=== PATIENT | male | born 1965 | race Caucasian/White ===

== ENCOUNTER 2017-08-23 22:23 | Emergency (ER) | payer OTHER ==
[~2017-08-23] VITALS: Ht 177.8 cm; Wt 99.8 kg
--- NOTE | 2017-08-23 22:38 | NUR ---
BB RA C/C "LEFT ANKLE PAIN S/P [employer]". PAIN 10/29. -N/V/D. PT AAOX4. SKIN WNL. PT UNABLE TO MOVE LEFT FOOT SIDE TO SIDE. STRONG AND EQUAL BILATERAL PEDAL PULSES. + BILATERAL SENSATIONS. NO BLEEDING OR HEMATOMA NOTED. PT ABLE TO MOVE TOES ON LEFT FOOT. VSS. PT PLACED ON MONITOR AND POX. PT SAFETY AND COMFORT MEASURES IN PLACE. AWAITING MD FOR EVAL.
[2017-08-23] MEDS ORDERED: HYDROMORPHONE INJ 2 MG/ML DISP.SYRIN ONE (22:42)
--- NOTE | 2017-08-23 22:43 | NUR ---
ADDICTION [employer] WORKER BEDSIDE
[2017-08-23] MEDS ORDERED: ONDANSETRON HCL/PF 4 MG/2 ML VIAL ONE (22:44)
--- NOTE | 2017-08-23 22:58 | NUR ---
MD BEDSIDE WITH PT
[2017-08-23] MEDS ORDERED: ONDANSETRON HCL/PF 4 MG/2 ML VIAL IV ONE (23:00)
[2017-08-23] MEDS ORDERED: HYDROMORPHONE 1 MG/1 ML DISP.SYRIN IV ONE (23:00)
[2017-08-23] MEDS ORDERED: PROPOFOL 20 ML IV ONE (23:33)
--- NOTE | 2017-08-23 23:58 | NUR ---
2351: MD WIN, ACCOUNT CLASSIFICATION CLERK DONALD, RT SINCERE, RN FLAVIA, RN JOSEPH, EMT ML BEDSIDE FOR MODERATE SEDATION. CONSENT PAPERS SIGNED BY PT. PT AWARE OF PROCEDURE. VERBAL ORDER FROM MD TO PUSH 100MG OF PROP. VSS PRE,INTRA, AND POST PROCEDURE. PT AAOX4 AT 2357 WITH EVEN AND UNLABORED BREATHS. WILL CONTINUE TO MONITOR PT.
[2017-08-24] MEDS ORDERED: PROPOFOL 200 MG/20 ML VIAL IV ONE (00:30)
--- NOTE | 2017-08-24 01:06 | NUR ---
Patient is resting comfortably in bed with eyes closed. Easily aroused. VSS
[2017-08-24 01:40] VITALS: BP 134/85
--- NOTE | 2017-08-24 01:40 | NUR ---
Patient discharged to home in stable condition. Written and verbal after care instructions given. Patient verbalizes understanding of instruction.IV removed. Catheter intact and site benign. Pressure and 4x4 applied to site. No bleeding noted. VSS UPON DISCHARGE
== END 2017-08-24 01:42 | disposition home or self-care (01) ==
LOC: ER 22:24
DX: S82.832A Other fracture of upper and lower end of left fibula, initial encounter for closed fracture (principal); S83.125A Posterior dislocation of proximal end of tibia, left knee, initial encounter; W01.0XXA Fall on same level from slipping, tripping and stumbling without subsequent striking against object, initial encounter; Y93.66 Activity, soccer; Y92.89 Other specified places as the place of occurrence of the external cause; Y99.8 Other external cause status
CPT/HCPCS: 27788; 73610 ×2; 96374; 96375; 99152; 99285; A4606; J1170; J2405; J2704; J7030; Z7610